=== PATIENT | female | born 1945 | race African-American/Black ===

== ENCOUNTER 2025-02-19 16:59 | Emergency (ER) | payer OTHER, MEDICAID ==
[~2025-02-19] VITALS: Ht 162.6 cm; Wt 68.0 kg
[2025-02-19 17:01] VITALS: O2SAT 98
[2025-02-19 18:09] LABS: BASOPHILS % 1.3 % (0.0-2.0); EOSINOPHILS % 0.9 % (0.0-5.0); HEMATOCRIT. 32.9 % (36.0-48.0); HEMOGLOBIN. 10.3 g/dL (12.0-16.0); LYMPHOCYTES % 14.7 % (20.0-50.0); MEAN PLATELET VOLUME 7.7 fl (7.4-10.4); MONOCYTES % 6.7 % (2.0-8.0); NEUTROPHILS % 76.4 % (40.0-76.0); PLATELET 616 x1000/uL (130-400); RED BLOOD CELL COUNT 4.50 mill/uL (4.2-5.4); RED CELL DISTRIBUTION WIDTH 17.4 % (11.6-14.6)
[2025-02-19 18:25] LABS: CREATININE 0.4 mg/dL (0.6-1.0); UREA NITROGEN BLOOD 9 mg/dL (9-23)
[2025-02-19 18:26] LABS: TROPONIN I HIGH SENSITIVITY < 4 ng/L (3.0-34)
[2025-02-19] MEDS: CALCIUM GLUCONATE 1GM PREMIX 50 ML IV SCH (18:49)
[2025-02-19] MEDS: CEFTRIAXONE 1GM/50ML 50 ML IV SCH (20:07)
[2025-02-19 22:27] VITALS: BP 117/73; PULSE 111; RESP 24; TEMP 36.8; O2SAT 97
== END 2025-02-19 22:40 | disposition short-term general hospital (02) ==
LOC: ER 16:59 → EDBEDREQ 17:52 → ER 22:40 → CMPBEDREQ 02-20 07:32
DX: J11.00 Influenza due to unidentified influenza virus with unspecified type of pneumonia (principal); I10 Essential (primary) hypertension; D64.9 Anemia, unspecified
CPT/HCPCS: 99285; 96365; 71045; 96367; 87426; 80048; 82550; 85025; 87040; 84484; 36415; J0612; J0696